=== PATIENT | male | born 1985 | race Caucasian/White ===

== ENCOUNTER 2020-09-17 19:34 | Emergency (ER) | payer MEDICAID ==
[2020-09-17 19:40] VITALS: BP 136/70
--- NOTE | 2020-09-17 19:46 | ED Physician Documentation ---
PD HPI MHE - Stated complaint Stated Complaint: MHE - Chief complaint Chief Complaint: MHE - History obtained from History obtained from: Patient - Additional information Additional information: He has no acute medical or psychiatric complaints. He just says he is homeless and needs a place to stay. Denies SI or HI. Review of Systems Constitutional: reports: Reviewed and negative Cardiac: reports: Reviewed and negative Respiratory: reports: Reviewed and negative PD PAST MEDICAL HISTORY - Present Medications Home Medications: Ambulatory Orders Medication Instructions Recorded Confirmed No Known Home Medications 09/17/20 09/17/20 - Allergies Allergies/Adverse Reactions: Allergies Allergy/AdvReac Type Severity Reaction Status Date / Time No Known Drug Allergies Allergy Verified 09/17/20 19:36 PD ED PE NORMAL - Vitals Vital signs reviewed: Yes - General General: Alert and oriented X 3, No acute distress - HEENT HEENT: PERRL, EOMI - Neuro Neuro: Alert and oriented X 3, Normal speech - Psych Psych: Normal mood, Normal affect Results - Vitals Vitals: Vital Signs - 24 hr 09/17/20 19:37 Temperature 37.1 C Heart Rate 96 Respiratory 18 Rate Blood Pressure 136/70 H O2 Saturation 98 Oxygen O2 Source Room air PD MEDICAL DECISION MAKING - ED course ED course: We are trying to find a ride for him to the [place] [facility] and he ambulated out of the department. Departure - Departure Disposition: 01 Home, Self Care Clinical Impression: Homelessness Condition: Stable Record reviewed to determine appropriate education?: Yes Follow-Up: [facility] [Provider Group] Comments: If you stay in the area, follow-up with the clinic listed for routine medical care and evaluation. Return if you develop of an emergency medical condition. Discharge Date/Time: 09/17/20 19:55
== END 2020-09-17 19:55 | disposition home or self-care (01) ==
LOC: ED 19:34
DX: Z59.0 Homelessness (principal)
CPT/HCPCS: 99281